=== PATIENT | male | born 1970 | race Two or more races ===

== ENCOUNTER 2022-03-11 11:20 | Emergency (ER) | payer SELFPAY ==
[~2022-03-11] VITALS: Ht 172.7 cm; Wt 100.0 kg
[2022-03-11 13:07] LABS: Basophils # (auto) 0.1 10 ^3/uL (0-0.2); Eosinophils # (auto) 0.1 10 ^3/uL (0-0.8); Monocytes # (auto) 0.4 10 ^3/uL (0-1.3)
[2022-03-11 13:10] LABS: Eosinophils % (auto) 0.9 % (0.0-7.0); Hematocrit 51.4 % (36.0-46.0); Hemoglobin 18.4 g/dL (12.2-16.2); Lymphocytes % (auto) 34.6 % (10.0-50.0); Mean Corpuscular Hemoglobin 30.5 pg (28.0-32.0); Mean Corpuscular Hgb Conc. 35.9 g/dL (32.0-36.0); Mean Corpuscular Volume 85.2 fL (80.0-100.0); Monocytes % (auto) 6.9 % (0.0-12.0); Neutrophils # (auto) 3.2 10 ^3/uL (1.6-8.6); Neutrophils % (auto) 55.6 % (37.0-80.0); Nucleated Red Blood Cells % 0.3 %; Red Blood Cells 6.03 10^6/uL (4.0-5.20); Red Cell Distribution Width 13.6 % (11.8-14.3); White Blood Cell 5.8 10^3/uL (4.4-10.8)
[2022-03-11 13:18] LABS: Albumin 3.4 g/dL (3.4-5.0); Calcium 8.3 mg/dL (8.5-10.1); Potassium 4.1 mmol/L (3.5-5.1)
[2022-03-11 13:21] LABS: BUN/Creatinine Ratio 20.3; Bilirubin, Total 0.4 mg/dL (0.2-1.0); Total Protein 7.5 g/dL (6.4-8.2)
[2022-03-11 14:12] VITALS: BP 149/99
== END 2022-03-11 14:14 | disposition home or self-care (01) ==
LOC: ER 11:20 → EDBD 11:20 → EDSEX 11:20 → ER 14:14
DX: R07.89 Other chest pain (principal); G62.1 Alcoholic polyneuropathy; F10.90 Alcohol use, unspecified, uncomplicated
CPT/HCPCS: 36415; 71045; 80053; 84484; 85025; 93005